=== PATIENT | female | born 1975 | race Caucasian/White ===

== ENCOUNTER 2024-10-15 12:50 | Emergency (ER) | payer OTHER | END 2024-10-15 14:02 | disposition home or self-care (01) | LOC: MW.ED 12:50 | DX: T20.10XA Burn of first degree of head, face, and neck, unspecified site, initial encounter (principal); T20.24XA Burn of second degree of nose (septum), initial encounter; Z79.899 Other long term (current) drug therapy | CPT/HCPCS: 99283 ==